=== PATIENT | female | born 1950 ===

== ENCOUNTER 2017-02-11 11:23 | Emergency (ER) | payer MEDICARE, OTHER ==
[2017-02-11 11:24] VITALS: BMI 28.3
[2017-02-11 11:40] VITALS: BP 140/92; PULSE 82; RESP 18; TEMP 98; O2SAT 96
--- NOTE | 2017-02-11 12:01 | ED PDOC ---
Upper Extremity Pain/Injury Time Seen by Provider: 02/11/17 11:54 Chief Complaint (Nursing): Upper Extremity Problem/Injury History Per: Patient Onset/Duration Of Symptoms: Days (3) Current Symptoms Are (Timing): Still Present Quality: Aching Severity: Moderate Pain Scale Rating Of: 4 Additional Complaint(s): Left shoulder pain radiating from left side of neck. No weakness or parasthesia. No trauma. Has cervical disc disease with chronic pain. Also c/o nonproductive cough. No fever or SOB. Past Medical History Vital Signs: Last Vital Signs Temp 98 F 02/11/17 11:36 Pulse 82 02/11/17 11:36 Resp 18 02/11/17 11:36 BP 140/92 H 02/11/17 11:36 Pulse Ox 96 02/11/17 11:36 - Medical History PMH: Arthritis, Bronchitis, Hypercholesterolemia, Hypothyroidism, Rheumatoid Arthritis Denies: HIV, Chronic Kidney Disease - Family History Family History: States: Unknown Family Hx - Home Medications Home Medications: Ambulatory Orders Medication Instructions Recorded Baclofen [Lioresal] 10 mg PO BID PRN 03/31/16 Bisacodyl [Dulcolax] 10 mg PO HS PRN 03/31/16 Calcium Carbonate [Caltrate] 1 tab PO DAILY 03/31/16 Cholecalciferol (Vitamin D3) 2,000 unit PO DAILY 03/31/16 [Vitamin D3] Ciprofloxacin [Cipro] 500 mg PO BID #14 tab 03/31/16 Denosumab [Prolia] 60 mg SQ Q6M 03/31/16 Diclofenac Sodium [Voltaren] 1 appl TOP TID PRN 03/31/16 Levothyroxine [Synthroid] 75 mcg PO SUSA 03/31/16 Pantoprazole Sodium [Protonix] 40 mg PO DAILY 03/31/16 Promethazine DM [Phenergan DM 5 ml PO Q6H PRN 03/31/16 Syrup] metroNIDAZOLE [Flagyl] 500 mg PO TID #21 tab 03/31/16 traMADol [Ultram] 50 mg PO Q8H PRN 03/31/16 traMADol [Ultram] 50 mg PO TID PRN #12 tab 03/31/16 Acetaminophen with Codeine 1 tab PO Q8H #10 tab 02/11/17 [Tylenol with Codeine No. 3 300 mg-30 mg] Azithromycin [Zithromax] 500 mg PO DAILY #6 tab 02/11/17 - Allergies Allergies/Adverse Reactions: Allergies Allergy/AdvReac Type Severity Reaction Status Date / Time Penicillins Allergy RASH Verified 06/04/15 12:43 Review of Systems Constitutional: Negative for: Fever Cardiovascular: Negative for: Chest Pain Respiratory: Positive for: Cough. Negative for: Shortness of Breath Musculoskeletal: Positive for: Neck Pain, Shoulder Pain Neurological: Negative for: Weakness, Numbness Physical Exam - Physical Exam Appears: Positive for: Non-toxic, Uncomfortable Skin: Positive for: Normal Color, Warm, DRY Neck: Positive for: Supple. Negative for: Normal (No deformity or post tenderness. Left paracervical tenderness and spasm.) Respiratory: Positive for: CNT, Normal Breath Sounds Extremity: Positive for: Tenderness (Left shoulder) Neurologic/Psych: Positive for: Alert, Oriented. Negative for: Motor/Sensory Deficits - ECG O2 Sat by Pulse Oximetry: 96 Disposition - Clinical Impression Clinical Impression: Radiculopathy of cervical region, Bronchitis - Patient ED Disposition Is Patient to be Admitted: No Counseled Patient/Family Regarding: Studies Performed, Diagnosis, Need For Followup, Rx Given - Disposition Referrals: [facility] [place] [Outside] Disposition: Routine/Home Disposition Time: 13:14 Condition: FAIR Prescriptions: Acetaminophen with Codeine [Tylenol with Codeine No. 3 300 mg-30 mg] 1 tab PO Q8H #10 tab Azithromycin [Zithromax] 500 mg PO DAILY #6 tab Instructions: Cervical Radiculopathy (ED), Acute Bronchitis (ED) Forms: [employer] ([employer]ami) Print Language: MALAGASY
--- NOTE | 2017-02-11 16:58 | RAD ---
HISTORY: cough COMPARISON: No prior. TECHNIQUE: Chest PA and lateral FINDINGS: LUNGS: No active pulmonary disease. PLEURA: No significant pleural effusion identified. No pneumothorax apparent. CARDIOVASCULAR: Normal. Atherosclerotic aorta. OSSEOUS STRUCTURES: No significant abnormalities. VISUALIZED UPPER ABDOMEN: Normal. OTHER FINDINGS: None. IMPRESSION: No active disease.
--- NOTE | 2017-02-11 16:59 | RAD ---
PROCEDURE: Cervical Spine Radiographs. HISTORY: Pain. COMPARISON: None. FINDINGS: BONES: Alignment maintained. No fracture. Dens Intact. DISC SPACES: Multilevel degenerative changes present. SOFT TISSUES: Normal. No prevertebral soft tissue swelling. OTHER FINDINGS: None. IMPRESSION: Multilevel degenerative changes present.
--- NOTE | 2017-02-11 17:01 | RAD ---
PROCEDURE: Radiographs of the Left Shoulder HISTORY: pain COMPARISON: No prior. FINDINGS: BONES: Normal. No fracture. JOINTS: Acromioclavicular osteoarthritis. SOFT TISSUES: Normal. OTHER FINDINGS: None. IMPRESSION: No fracture.
== END 2017-02-11 14:16 | disposition home or self-care (01) ==
LOC: H.ER 11:23
DX: M54.12 Radiculopathy, cervical region (principal); M25.512 Pain in left shoulder; E03.9 Hypothyroidism, unspecified; E78.00 Pure hypercholesterolemia, unspecified; J40 Bronchitis, not specified as acute or chronic; M06.9 Rheumatoid arthritis, unspecified; Z88.0 Allergy status to penicillin
CPT/HCPCS: 71020; 72040; 73020; 96372; 99282; J1885